=== PATIENT | male | born 1955 | race Caucasian/White ===

== ENCOUNTER → 2017-07-19 | Outpatient (CLI) | payer OTHER ==
[~2017-07-19] MED LIST: ASPIR 8181 M1 PO; LIVALO2 MG PO; POTASSIUM GLUCO2 MEQ PO; ZEGERID OTC 201 EACH PO
== END | disposition home or self-care (01) ==
LOC: CDC 15:26
DX: Z01.810 Encounter for preprocedural cardiovascular examination (principal); M48.061 Spinal stenosis, lumbar region without neurogenic claudication; M54.16 Radiculopathy, lumbar region
CPT/HCPCS: 93000